=== PATIENT | female | born 1990 | race African-American/Black ===

== ENCOUNTER 2016-12-14 01:24 | Emergency (ER) | payer OTHER ==
[~2016-12-14] VITALS: Ht 165.1 cm; Wt 108.9 kg
[2016-12-14 01:34] VITALS: BP 124/72
[2016-12-14 02:00] LABS: BILIRUBIN,URINE NEGATIVE (NEG); GLUCOSE,URINE NEGATIVE (NEG); NITRITE,URINE POSITIVE (NEG); PH,URINE 5.5; PROTEIN,URINE 100 mg/dL (NEG-TRACE)
[2016-12-14] MEDS ORDERED: TRAMADOL 50 MG TABLET. PO ONE (02:00)
[2016-12-14 02:07] LABS: BACTERIA,URINE MANY /HPF (0-FEW); SQUAMOUS EPITHELIAL CELL,UR MOD /LPF; WBC,URINE TNTC /HPF (0-4)
[2016-12-14 02:08] LABS: TRICHOMONAS,URINE PRESENT
[2016-12-14] MEDS ORDERED: SMZ/TMP 800/160MG TABLET. PO ONE (02:45)
[2016-12-14] MEDS ORDERED: IBUPROFEN 800 MG TABLET. PO ONE (02:45)
[2016-12-14] MEDS ORDERED: METRONIDAZOLE 500 MG TABLET. PO ONE (02:45)
[2016-12-14] MEDS ORDERED: SULF1TAB24 PO (03:14)
[2016-12-14] MEDS ORDERED: NAPR375T3 PO (03:14)
[2016-12-14] MEDS ORDERED: METR500T4 PO (03:14)
--- NOTE | 2016-12-14 03:14 | PHYS DOC ---
Past Medical History Past Medical History: No Pertinent History Past Surgical History: Other Additional Past Surgical Histo: D&C Alcohol Use: None Drug Use: None Adult General Chief Complaint Chief Complaint: ABDOMINAL PAIN HPI HPI Patient is a 26 year old female who presents with dysuria and vulvar irritation. Patient reports she has been having the symptoms since Saturday. She also reports clear vaginal discharge. No bleeding. Last menstrual period ended one week ago. Patient has tried multiple [id number] medication, including Vagisil, Azo, Monistat with insufficient relief. Review of Systems Review of Systems Constitutional: Denies fever or chills Respiratory: Denies cough or shortness of breath Cardiovascular: Denies chest pain GI: Denies abdominal pain, nausea, vomiting, or diarrhea : Dysuria, vulvar irritation, clear vaginal discharge Musculoskeletal: Denies back pain or joint pain Neurologic: Denies headache, focal weakness or sensory changes Current Medications Current Medications Current Medications Medications (Trade) Dose Ordered Sig/Marychuy Start Time Stop Time Status Last Admin Dose Admin Ibuprofen (Motrin) 800 mg 1X ONCE 12/14/16 02:45 12/14/16 03:07 DC 12/14/16 02:55 800 MG Metronidazole (Flagyl) 500 mg 1X ONCE 12/14/16 02:45 12/14/16 03:07 DC 12/14/16 02:55 500 MG Tramadol HCl (Ultram) 50 mg 1X ONCE 12/14/16 02:00 12/14/16 02:18 DC 12/14/16 02:12 50 MG Trimethoprim/ Sulfamethoxazole (Bactrim Ds) 1 tab 1X ONCE 12/14/16 02:45 12/14/16 03:07 DC 12/14/16 02:55 1 TAB Allergies Allergies Allergies Coded Allergies Type Severity Reaction Last Updated Verified No Known Drug Allergies 03/19/16 No Physical Exam Physical Exam Constitutional: Well developed, well nourished, no acute distress, non-toxic appearance Neck: Normal range of motion, no stridor Cardiovascular: Heart rate normal, regular rhythm, no murmur Lungs & Thorax: Bilateral breath sounds clear to auscultation Abdomen: Bowel sounds normal, soft, non-distended, no TTP Pelvic: Small raised bump just superior to vulva (patient reports this is chronic from ingrown hair); clear vaginal discharge; does not tolerate speculum or bimanual exam; no external erythema, no vesicular lesions Skin: Warm, dry, no erythema, no rash Extremities: No obvious deformity, no edema Neurologic: Alert and oriented X 3, no gross deficits noted Current Patient Data Vital Signs Vital Signs Date Time Temp Pulse Resp B/P Pulse Ox O2 Delivery O2 Flow Rate FiO2 12/14/16 02:12 18 12/14/16 01:34 98.4 107 124/72 97 Room Air 98.4 Lab Values Laboratory Tests Test 12/14/16 00:39 12/14/16 01:33 POC Urine HCG, Qualitative Hcg negative (Negative) Urine Collection Type Unknown Urine Color Taylor Urine Clarity Cloudy Urine pH 5.5 Urine Specific Gamaliel 1.025 Urine Protein 100mg/dL (NEG-TRACE) Urine Glucose (UA) Negativemg/dL (NEG) Urine Ketones (Stick) Tracemg/dL (NEG) Urine Blood Trace (NEG) Urine Nitrite Positive (NEG) Urine Bilirubin Negative (NEG) Urine Urobilinogen Dipstick 1.0mg/dL (0.2 mg/dL) Urine Leukocyte Esterase Large (NEG) Urine RBC 3-5/HPF (0-2) Urine WBC Tntc/HPF (0-4) Urine Squamous Epithelial Cells Mod/LPF Urine Amorphous Sediment Present/HPF Urine Bacteria Many/HPF (0-FEW) Urine Mucus Marked/LPF Urine Trichomonas Present Microbiology 12/14/16 Wet Prep - Final, Complete EKG EKG [] Radiology/Procedures Radiology/Procedures [] Course & Med Decision Making Course & Med Decision Making Pertinent Labs and Imaging studies reviewed. (See chart for details) Patient is 26-year-old female who presents with dysuria and vulvar irritation. Suspect UTI; perhaps other infectious process such as yeast infection. UA, urine screen, pelvic swabs sent to lab (able to obtain swabs despite unable to complete full pelvic exam). Oral pain medication ordered for relief of symptoms. UA indicative of UTI, also shows Trichomonas. Discussed results with patient. Dose of Bactrim and Flagyl ordered to be given in ED. Will discharge with prescription for same, instructions for follow-up with [facility], return precautions. Dragon Disclaimer Dragon Disclaimer This electronic medical record was generated, in whole or in part, using a voice recognition dictation system. Departure Departure Impression: Primary Impression: UTI (urinary tract infection) Additional Impression: Trichomonal urethritis Disposition: HOME, SELF-CARE Condition: STABLE Referrals: NO PCP (PCP) JUANITA MEDINA MD Patient Instructions: Trichomoniasis, Urinary Tract Infection Additional Instructions: Thank you for allowing us to provide care today in the Emergency Department. Take the provided medication as directed. Schedule a follow up appointment with an [facility] using the provided contact information. Return promptly to the Emergency Department if you develop any new or concerning symptoms. Scripts Sulfamethoxazole/Trimethoprim (Bactrim Ds Tablet)1 Each Tablet1 Tab PO BID #10 TAB Prov:KRISTEN WELCH MD 12/14/16 Metronidazole 500 Mg Tablet1 Tab PO BID #14 TAB Prov:KRISTEN WELCH MD 12/14/16 Naproxen 375 Mg [id number] Mg PO BID PRN pain, swelling #20 Prov:KRISTEN WELCH MD 12/14/16 Problem Qualifiers KRISTEN WELCH MD Dec 14, 2016 03:14
== END 2016-12-14 03:26 | disposition home or self-care (01) ==
LOC: ER 01:24
DX: N39.0 Urinary tract infection, site not specified (principal); A59.03 Trichomonal cystitis and urethritis
CPT/HCPCS: 81001; 81025; 87086; 99284; Q0111

== ENCOUNTER 2017-06-12 06:08 | Emergency (ER) | payer SELFPAY ==
[~2017-06-12 06:08] MED LIST: METR500T8 PO; NAPR-695 PO; SULF1TAB24 PO
[2017-06-12 06:17] VITALS: BP 148/89
[2017-06-12] MEDS ORDERED: CIPR5DRO LEFTEYE (06:35)
--- NOTE | 2017-06-12 06:35 | PHYS DOC ---
Past Medical History Past Medical History: No Pertinent History Past Surgical History: Other Additional Past Surgical Histo: D&C Alcohol Use: Occasionally Drug Use: None Adult General Chief Complaint Chief Complaint: EYE PROBLEMS HPI HPI Patient is a 26 year old female who presents with onset this morning of left eye redness and drainage and matting. Moderate severity. Right eye asymptomatic. Not using contact lenses. 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 Denies significant blurry vision. Denies eye pain. Review of Systems Review of Systems Constitutional: Denies fever or chills [] Eyes: Denies change in visual acuity, redness, or eye pain [] HENT: Denies nasal congestion or sore throat [] Respiratory: Denies cough or shortness of breath [] Cardiovascular: No additional information not addressed in HPI [] GI: Denies abdominal pain, nausea, vomiting, bloody stools or diarrhea [] : Denies dysuria or hematuria [] Musculoskeletal: Denies back pain or joint pain [] Integument: Denies rash or skin lesions [] Neurologic: Denies headache, focal weakness or sensory changes [] Endocrine: Denies polyuria or polydipsia [] Current Medications Current Medications Current Medications Medications (Trade) Dose Ordered Sig/Marychuy Start Time Stop Time Status Last Admin Dose Admin Fluorescein Sodium (Ful-Danielle) 1 strip 1X ONCE 06/12/17 07:00 06/12/17 07:00 DC 06/12/17 06:32 1 STRIP Tetracaine HCl (Tetracaine) 1 drop 1X ONCE 06/12/17 07:00 06/12/17 07:00 DC 06/12/17 06:32 1 DROP Allergies Allergies Allergies Coded Allergies Type Severity Reaction Last Updated Verified No Known Drug Allergies 03/19/16 No Physical Exam Physical Exam Constitutional: Well developed, well nourished, no acute distress, non-toxic appearance. [] HENT: Normocephalic, atraumatic, bilateral external ears normal, oropharynx moist, no oral exudates, nose normal. No preauricular lymph node palpable. No facial swelling.[] Eyes: PERRLA, EOMI, conjunctiva normal, no discharge. Left eyelids are normal no swelling. Conjunctiva and sclera are injected. Anterior chamber is clear foreseen staining using a Leija lamp no foreign body abrasion or ulcers or diarrhea take was seen. Pupil is normal in appearance and reactive bilaterally[ ] Neck: Normal range of motion, no tenderness, supple, no stridor. [] Cardiovascular:Heart rate regular rhythm, no murmur [] Lungs & Thorax: Bilateral breath sounds clear to auscultation [] Abdomen: Bowel sounds normal, soft, no tenderness, no masses, no pulsatile masses. [] Skin: Warm, dry, no erythema, no rash. [] Back: No tenderness, no CVA tenderness. [] Extremities: No tenderness, no cyanosis, no clubbing, ROM intact, no edema. [] Neurologic: Alert and oriented X 3, normal motor function, normal sensory function, no focal deficits noted. [] Psychologic: Affect normal, judgement normal, mood normal. [] Current Patient Data Vital Signs Vital Signs Date Time Temp Pulse Resp B/P (MAP) Pulse Ox O2 Delivery O2 Flow Rate FiO2 06/12/17 06:17 99.2 79 16 99 Room Air 99.2 EKG EKG [] Radiology/Procedures Radiology/Procedures [] Course & Med Decision Making Course & Med Decision Making Pertinent Labs and Imaging studies reviewed. (See chart for details) [Based on history and physical exam patient has left conjunctivitis we will treat appropriately Dragon Disclaimer Dragon Disclaimer This electronic medical record was generated, in whole or in part, using a voice recognition dictation system. Departure Departure Impression: Primary Impression: Conjunctivitis, left eye Disposition: 01 HOME, SELF-CARE Condition: STABLE Referrals: NO PCP (PCP) Patient Instructions: Bacterial Conjunctivitis, [id number] Scripts Ciprofloxacin Hcl (CILOXAN) 5 Ml Drops 2 DROP LEFTEYE QID for 5 Days, #5 ML Prov: TABITHA VILLARREAL MD 06/12/17 TABITHA VILLARREAL MD Jun 12, 2017 06:35
[2017-06-12] MEDS ORDERED: FLUORESCEIN OPHTH TEST STRIP. OS ONE (07:00)
[2017-06-12] MEDS ORDERED: TETRACAINE 0.5% OPHTH SOLUTION 4ML BOTTLE. OS ONE (07:00)
== END 2017-06-12 06:41 | disposition home or self-care (01) ==
LOC: ER 06:08
DX: H10.9 Unspecified conjunctivitis (principal)
CPT/HCPCS: 99283